=== PATIENT | female | born 1995 | race Hispanic/Latino ===

== ENCOUNTER 2017-12-30 11:42 | Emergency (ER) | payer MEDICAID, OTHER ==
[2017-12-30 12:52] LABS: RAPID GROUP A STREP NEGATIVE (NEGATIVE)
== END 2017-12-30 13:27 | disposition home or self-care (01) ==
LOC: EDH 11:42
DX: J02.8 Acute pharyngitis due to other specified organisms (principal); B97.89 Other viral agents as the cause of diseases classified elsewhere
CPT/HCPCS: 87804; 87880